=== PATIENT | female | born 1985 | race Caucasian/White ===

== ENCOUNTER 2023-08-09 14:13 | Emergency (ER) | payer MEDICARE, SELFPAY ==
[2023-08-09 14:22] VITALS: BP 164/99
--- NOTE | 2023-08-09 14:44 | ED.GENMED ---
History of Present Illness
<Amy Betancourt PA-C - Last Filed: 08/09/23 22:40>
General
Chief Complaint: Anxiety
Source: patient
Exam Limitations: none
Time Seen by Provider: 08/09/23 14:42
Nursing documentation reviewed up to this point in time: agreed with
Travel History
Have you had any contact with someone who has COVID-19?: No
Do you have any symptoms of coronavirus? Fever > 100 degrees, chills, cough, shortness of breath, sore throat, loss of taste or smell, muscle aches, or headache?: No
History of Present Illness
History of Present Illness:
38-year-old female with past medical history of PTSD, anxiety, depression presenting emergency department for concerns of increased vaginal discharge, vaginal spotting, and pelvic discomfort. Patient is concerned that she is . Her last
menstrual period was in May. Patient also is concerned she might have STD. Patient had unprotected sex these past few weeks with 2 different partners. Of note, patient lives in [place] and was recently picked up by her parents and driven back
to [place] because her mental health has been suffering. Patient was given pamphlets from crisis department regarding mental health treatment. Patient not seeking inpatient treatment at this time. Patient denies suicidal/homicidal ideations.
Review of Systems
<Amy Betancourt PA-C - Last Filed: 08/09/23 22:40>
Review of Systems
All Other Systems: ROS reviewed and negative except as documented in HPI and ROS
Phy Exam
<Amy Betancourt PA-C - Last Filed: 08/09/23 22:40>
Physical Exam
Physical Exam:
Vitals: Vital signs are stable
General: Patient is well appearing and in no acute distress
Skin: Warm and dry, no rashes or lesions
Head: Normocephalic, atraumatic
Eyes: Sclera non-icteric. EOMs intact. PERRLA.
Cardiac: Regular rate and rhythm, no murmurs
Pulm: Normal respiratory effort, no wheezes, rales, rhonchi
Abdomen: No abdominal tenderness to palpation, no palpable masses
Genitourinary: External genitalia intact, no vulvar lesions. Vaginal mucosa pink and moist, no lesions. White discharge seen in vaginal vault. Cervical os closed. No cervical lesions.
Psychiatric: Appropriate insight and judgement. No suicidal or homicidal ideations.
Course
<Amy Betancourt PA-C - Last Filed: 08/09/23 22:40>
Orders/Labs/Results
Orders:
Orders
08/09/23 14:57
Test Result ONCE
08/09/23 15:07
Complete Blood Count/With Diff Urgent
Comprehensive Metabolic Panel Urgent
Glycohemoglobin (HgbA1c) Urgent
HCG, Serum Qualitative Screen Urgent
HIV Combo Urgent
Comment: ADD ON
Lipase Urgent
08/09/23 15:40
0.9% Sodium Chloride 500 ml [Nss] 500 ml IV BOLUS
08/09/23 16:01
Add On- LAB Urgent
Tests Added?: HIV combo
08/09/23 16:22
Chlamydia/GC by PCR Urgent
[facility] Source: Urine
Specimen Description:
Source:: URINE
Date Specimen was Collected: 08/09/23
Time Specimen was Collected: 15:57
Trichomonas - Wet Prep Urgent
[facility] Source: Vagina
Specimen Description:
Date Specimen was Collected: 08/09/23
Time Specimen was Collected: 15:57
08/09/23 17:05
CefTRIAXone [Rocephin] 500 mg Intramuscular Injection 0 ml IM ONCE
Doxycycline [Vibramycin] 100 mg PO NOW STA
08/09/23 17:18
CefTRIAXone [Rocephin] 500 mg IV NOW STA
Abnormal Lab Results
08/09/23
15:07
MCH 31.3 H pg
(27.0-31.0)
Plt Count 408 H 10^3/uL
(130-400)
Absolute Neuts (auto) 7.0 H 10^3/uL
(1.4-6.5)
Absolute Monos (auto) 1.2 H 10^3/uL
(0.1-0.6)
Lymphocytes % 17.7 L %
(20.5-51.1)
Monocytes % 12.0 H %
(1.7-9.3)
Glucose 104 H mg/dl
(70-99)
AST 49 H U/L
(14-36)
08/09/23 15:07
08/09/23 15:07
Vital Signs
Initial and Last Documented VS:
Initial Vital Signs
Temp Pulse Resp BP Pulse Ox
98.5 F 93 16 164/99 99
08/09/23 14:22 08/09/23 14:22 08/09/23 14:22 08/09/23 14:22 08/09/23 14:22
Last Documented Vital Signs
Temp Pulse Resp BP Pulse Ox
98.5 F 86 18 124/77 98
08/09/23 14:22 08/09/23 16:28 08/09/23 16:28 08/09/23 16:28 08/09/23 16:28
<Rambo Moffett, DO - Last Filed: 08/09/23 17:42>
Orders/Labs/Results
Orders:
Orders
08/09/23 14:57
Test Result ONCE
08/09/23 15:07
Complete Blood Count/With Diff Urgent
Comprehensive Metabolic Panel Urgent
Glycohemoglobin (HgbA1c) Urgent
HCG, Serum Qualitative Screen Urgent
HIV Combo Urgent
Comment: ADD ON
Lipase Urgent
08/09/23 15:40
0.9% Sodium Chloride 500 ml [Nss] 500 ml IV BOLUS
08/09/23 16:01
Add On- LAB Urgent
Tests Added?: HIV combo
08/09/23 16:22
Chlamydia/GC by PCR Urgent
[facility] Source: Urine
Specimen Description:
Source:: URINE
Date Specimen was Collected: 08/09/23
Time Specimen was Collected: 15:57
Trichomonas - Wet Prep Urgent
[facility] Source: Vagina
Specimen Description:
Date Specimen was Collected: 08/09/23
Time Specimen was Collected: 15:57
08/09/23 17:05
CefTRIAXone [Rocephin] 500 mg Intramuscular Injection 0 ml IM ONCE
Doxycycline [Vibramycin] 100 mg PO NOW STA
08/09/23 17:18
CefTRIAXone [Rocephin] 500 mg IV NOW STA
Abnormal Lab Results
08/09/23
15:07
MCH 31.3 H pg
(27.0-31.0)
Plt Count 408 H 10^3/uL
(130-400)
Absolute Neuts (auto) 7.0 H 10^3/uL
(1.4-6.5)
Absolute Monos (auto) 1.2 H 10^3/uL
(0.1-0.6)
Lymphocytes % 17.7 L %
(20.5-51.1)
Monocytes % 12.0 H %
(1.7-9.3)
Glucose 104 H mg/dl
(70-99)
AST 49 H U/L
(14-36)
08/09/23 15:07
08/09/23 15:07
Vital Signs
Initial and Last Documented VS:
Initial Vital Signs
Temp Pulse Resp BP Pulse Ox
98.5 F 93 16 164/99 99
08/09/23 14:22 08/09/23 14:22 08/09/23 14:22 08/09/23 14:22 08/09/23 14:22
Last Documented Vital Signs
Temp Pulse Resp BP Pulse Ox
98.5 F 86 18 124/77 98
08/09/23 14:22 08/09/23 16:28 08/09/23 16:28 08/09/23 16:28 08/09/23 16:28
<Rambo Moffett, DO - Last Filed: 08/09/23 17:42>
MDM/Problems Addressed
Differential Diagnosis Includes:
Anxiety, STD, HIV,
MDM/Problems Addressed:
38-year-old female with anxiety, no SI or HI. Stable for discharge, seen by crisis. No signs of PID or STD. Offered patient prophylaxis due to recent sex with multiple partners. She declines and will wait for testing.
Chronic conditions affecting care: Psychiatric illness
Acute Exacerbation and/or Progression of Chronic Illness: Psychiatric illness
<Amy Betancourt PA-C - Last Filed: 08/09/23 22:40>
Data Reviewed
Review of Other/Old Records Reveals: Records (No previous records to review)
Source: patient
<Rambo Moffett, DO - Last Filed: 08/09/23 17:42>
*Pulse Oximetry
Patient hypoxic: no
*EKG
Interpreted by ED Provider?: NA
*Design Drafter Interpretation
Rate: Design Drafter- N/A
*Critical Care Note
Total Time (30-74mins, 75-104mins- exclusive of procedures): Not Applicable
<Amy Betancourt PA-C - Last Filed: 08/09/23 22:40>
Patient Management
Escalation/DeEscalation of care consider admission/obs:
admit not indicated

38-year-old female with past medical history of PTSD, anxiety, depression presenting emergency department for concerns of increased vaginal discharge, vaginal spotting, and pelvic discomfort. On exam, she has no abdominal tenderness. Cleared for
discharge by crisis. Patient not . Awaiting STD results, prophylaxis declined at this time.
<Rambo Moffett DO - Last Filed: 08/09/23 17:42>
Patient Management
Social determinants of health affecting care: Living situation and Strong social support
Escalation/DeEscalation of care consider admission/obs:
admit not indicated
ED Attending Note
<Amy Betancourt PA-C - Last Filed: 08/09/23 22:40>
-
Portions of this chart may have been created with voice recognition software.� Occasional wrong word or��sound alike� substitutions may have occurred due to the inherent limitations of voice recognition software.
<Rambo Moffett DO - Last Filed: 08/09/23 17:42>
ED Attending Note
Patient seen and examined by attending physician: Yes
I performed a history and physical exam of patient and discussed management with resident, I reviewed resident's note and agree with documented findings and plan of care.: Yes
ED Attending Note:
I have reviewed and agree with history and treatment plan by Amy Betancourt. My exam revealed 38-year-old female in no acute distress, ambulate without difficulty. Patient had some vaginal bleeding after going to the bathroom. He does not want
to be evaluated further for this. Suspect onset of her menses.
Discharge Plan
Departure
Patient Disposition: Home (Routine Discharge)
Date of Disposition: 08/09/23
Time of Disposition: 17:41
Patient with high blood pressure during this ER visit?: Yes
Discharge Problem:
Anxiety, At risk for sexually transmitted infection due to unprotected sex
Referrals:
UNKNOWN - PT DOES,NOT KNOW [Family Provider] -
Activity Restrictions/Additional Instructions:
Follow with primary care and psychiatry. Return for any concerns.
Interventions
Interventions:
*Risk Screen - Suicide Last Done: 08/09/23 16:27
*General Assessment Last Done: 08/09/23 16:27
*Neglect/Abuse Screening Last Done: 08/09/23 16:27
ED- Fall Risk Assessment Last Done: 08/09/23 16:28
*ED COVID-19 Vaccine History Last Done: 08/09/23 16:27
*Nursing Disposition Last Done: 08/09/23 17:46
ED-Psychological Assessment Last Done: 08/09/23 16:27
Discharge Date and Time
Discharge Date/Time: 08/09/23 17:46
Print Language: LEBANESE
[2023-08-09 15:30] LABS: HCG, Serum Qualitative Screen Negative
[2023-08-09 15:33] LABS: ALT (SGPT) 32 U/L (0-35); AST (SGOT) 49 U/L (14-36); Albumin 4.7 g/dl (3.5-5.0); Alkaline Phosphatase 91 U/L (38-126); Blood Urea Nitrogen 16 mg/dl (7-17); Calcium 10.2 mg/dl (8.4-10.2); Carbon Dioxide 25 mmol/L (22-30); Chloride 103 mmol/L (98-107); Glucose 104 mg/dl (70-99); Potassium 4.2 mmol/L (3.5-5.1); Sodium 137 mmol/L (135-145); Total Bilirubin 0.6 mg/dl (0.2-1.3); Total Protein 7.4 g/dl (6.3-8.2); eGFR > 60.00
[2023-08-09 15:48] LABS: Lipase 243 U/L (23-300)
[2023-08-09] MEDS: NSS 500 IV (15:58)
[2023-08-09 16:03] LABS: % Basophils 0.9 % (0-2); % Eosinophils 1.1 % (0-6); % Immature Granulocytes 0.2 % (0-0.5); % Lymphocytes 17.7 % (20.5-51.1); % Neutrophils 68.1 % (42.2-75.2); Absolute Basophils 0.1 10^3/uL (0-0.2); Absolute Eosinophils 0.1 10^3/uL (0-0.7); Absolute Lymphocytes 1.8 10^3/uL (1.2-3.4); Absolute Monocytes 1.2 10^3/uL (0.1-0.6); Hematocrit 38.9 % (37.0-47.0); Mean Corpuscular Hgb 31.3 pg (27.0-31.0); Mean Platelet Volume 10.3 fL (7.4-10.4); Nucleated Red Blood Cells % 0 %; Platelet Count 408 10^3/uL (130-400); Red Blood Cell Count 4.47 10^6/uL (4.20-5.40); Red Cell Dist. Width 12.2 % (11.5-14.5); White Blood Cell Count 10.2 10^3/uL (4.8-10.8)
[2023-08-09 16:28] VITALS: BP 124/77
[2023-08-09 16:59] LABS: HIV Combo Negative (Negative)
[2023-08-10 10:41] LABS: Glycohemoglobin (HgbA1c) 5.5 % (4.0-5.6)
== END 2023-08-09 17:46 | disposition home or self-care (01) ==
LOC: EMR 14:13
PROVIDERS: Physician Assistant; EMERGENCY PHYSICIAN Emergency Medicine
DX: F41.9 Anxiety disorder, unspecified (principal); F43.10 Post-traumatic stress disorder, unspecified; N89.8 Other specified noninflammatory disorders of vagina
CPT/HCPCS: 99283; 96360; 80053; 83036; 83690; 84703; 85025; 87210; 87389; 87491; 87591